=== PATIENT | male | born 1950 | race Caucasian/White ===

== ENCOUNTER → 2018-02-17 | Emergency (ER) | payer MEDICARE, SELFPAY ==
[~2018-02-17] MED LIST: Fentanyl 100 MCG/2 ML VIAL ONE; Midazolam HCl 2 mg/2 ml Vial ONE
--- NOTE | 2018-02-18 06:46 | RAD ---
RIGHT SHOULDER FOUR VIEWS: 02/17/2018 FINDINGS: An anterior dislocation of the humeral head is present. There is a bony density seen just lateral to the greater tubercle, indicating an avulsion injury. The clavicle appears intact. The AC joint matthew ws no offset. There is a mass in the right lung near the diaphragm medially. Further work up is needed. IMPRESSION: 1. Anterior dislocation of the shoulder with cortical avulsion. 2. Right lower lobe mass. CT recommended. POS: HOME
--- NOTE | 2018-02-18 06:48 | RAD ---
RIGHT SHOULDER ONE VIEW POST REDUCTION: 02/17/2018 FINDINGS: A single view was taken, showing successful reduction of the anterior dislocation. The small cortica l fracture seen previously is not visible on this study. There is a large mass present in the right lung, just below the right hilum, located in the medial pa rt of the lower right hemithorax. It measures at least 5.5 cm on this single view and is likely larg er. IMPRESSION: 1. Successful reduction of the shoulder. 2. Large mass in the base of the right lung. Further workup needed. CODE T POS: HOME
== END ==
LOC: BURERS 17:09
DX: S43.014A Anterior dislocation of right humerus, initial encounter (principal); D64.9 Anemia, unspecified; F17.220 Nicotine dependence, chewing tobacco, uncomplicated; W17.89XA Other fall from one level to another, initial encounter
CPT/HCPCS: 23650; 96374; 96375; J2250; J3010